=== PATIENT | female | born 1970 | race Caucasian/White ===

== ENCOUNTER 2016-03-25 06:21 | Inpatient (IN) | payer OTHER ==
[2016-03-23 14:59] VITALS: BMI 42.0
[~2016-03-25] VITALS: Ht 162.6 cm; Wt 112.2 kg
[2016-03-25] VITALS (8 sets, daily range): BP systolic 91–119; BP diastolic 58–73; PULSE 71–102; TEMP 36.6–37.1; O2SAT 95–100; Ht 162.6 cm; Wt 112.2 kg
[~2016-03-25 06:21] MED LIST: CEFAZOLIN 2000 MG/60 ML D5W IV SCH; CeleBREX 200 MG CAP PO SCH; DULO60CA44 PO; LACTATED RINGER'S 1000ML 1,000 ML IV SCH; LEVO50TA6 PO; NAPR-1169 PO; PREGABALIN 75 MG CAP PO SCH; PROP80TA2 PO
[2016-03-25] MEDS ORDERED: MIDAZOLAM HCL 1 MG/ML 2ML VIAL ONE (07:39)
[2016-03-25] MEDS ORDERED: FENTANYL CITRATE INJ 50 MCG/1 ML 2 ML VIAL ONE ×3 (07:39→08:51)
[2016-03-25] MEDS ORDERED: SCOPOLAMINE 1.5 MG TDSY TD ONE (07:57)
[2016-03-25] MEDS ORDERED: OXYC-57 PO (08:13)
--- NOTE | 2016-03-25 08:15 | Discharge Instructions ---
Discharge Instructions Admission Reason for Admission: Spinal Stenosis Discharge Discharge Diagnosis / Problem: Lumbar Stenosis Discharge Goals Goal(s): Decrease discomfort, Improve function, Increase independence Activity Recommendations Activity Limitations: as noted below Lifting Limitations: no more than 5 pounds Exercise/Sports Limitations: until after follow-up appointment May Resume Sexual Activity: after follow-up appointment Shower/Bathe: may shower/bathe in 3 days . Instructions / Follow-Up Instructions / Follow-Up ACTIVITY RECOMMENDATIONS: SELF CARE INSTRUCTIONS AFTER THORACIC/LUMBAR FUSIONS 1. You may walk to your tolerance. It is good exercise for your legs and back. Expect some back and intermittent leg aches and pains. 2. You may perform "counter-top" level activities (make a sandwich, yaquelin with a project, etc.). 3. No bending or lifting of more than 10 pounds or back twisting of any nature (roll like a log when turning in bed). 4. You may ride in a car for 20-30 minutes at a time. No driving until after your first visit with your doctor. 5. Frequent changes of position and restricting sitting to 30 minutes at a time will help limit the amount of back spasms and stiffness you may experience. 6. You may discontinue the use of ambulatory aids (cane, crutches, etc.) once your strength and confidence allow. 7. You may maintenance foreman the shower and let water strike your incision when you arrive home at least once daily. Do not take a tub bath, sit in a hot tub or go into a swimming pool until after your first recheck in the office. SPECIAL CARE INSTRUCTIONS: VERY IMPORTANT TO READ AND REVIEW A. Your surgical incision has been closed with a cosmetic suture under the skin that will dissolve in about 6 weeks. In 14 days, you can use a pair of clean scissors and cut the suture that is left outside of the skin at the ends of your incision. 1. The small skin tapes can be removed 7 days after surgery if they have not fallen off by that point. 2. You may keep the wound open to air as much as possible to promote healing after post-op day number 5 unless told otherwise by your doctor. 3. If you think the wound looks like it is becoming infected (redness or worsening drainage) and/or you are experiencing fever, chill or worsening back pain and muscle spasms, contact the office so that we may evaluate you as soon as possible. B. Complications are uncommon, but please contact us if you have any signs or symptoms of: 1. wound infection (fever higher than 102.5 degrees F, redness, separation of wound, drainage, or increasing pain from the incision) 2. blood clots in legs (pain, swelling, redness and warmth in legs) 3. urinary tract infection (fever higher than 102.5 degrees F, burning upon urination or increased frequency of urination) 4. nerve problems (inability to walk on your toes or heels, numbness, loss of bowel or bladder control) 5. any other symptoms that concern you C. Please call the office at if you have any concerns or questions about your operation or recovery. D. No smoking! Smoking drastically decreases the chance of a solid fusion. E. Do not take any anti-inflammatory medications (Indocin, Advil, Motrin, Aspirin, Naprosyn, etc.) as these may inhibit the chance of a solid fusion. Tylenol is okay to take for pain. MANAGING PAIN AFTER SPINAL SURGERY 1. Narcotic medication is intended for short-term use and will be provided for surgical pain. Surgical pain usually lasts for a period of 4-6 weeks. Narcotic medication includes Percocet, Vicodin, Darvocet, Tylenol #3 or Lortab. 2. Longer-term pain is more appropriately treated with non-narcotic medication such as Tylenol ES. 3. Muscle spasm is not appropriately treated with narcotics. Muscle relaxers such as Soma, Flexeril or Skelaxin can be used along with Tylenol ES. 4. Remember that we all live with some "aches and pains". This is not unusual or uncommon after an injury or as we get older. a. Back pain is expected and may include muscle spasms for 4 to 6 weeks after surgery. The pain should gradually improve. If the pain worsens for no apparent reason, please contact the office. b. Intermittent leg pain may also be experienced and should not be concerned about unless it worsens for no apparent reason. If so, please contact the office. 5. We will provide appropriate medication within the normal guidelines of their prescribed use. We will also be very cautious and aware of potential abuse and extended duration of patients' medication needs. a. Pain medications are for your comfort and to assist with sleep and rest so that the tissue can heal. They are not provided in order to return to normal activity and should not be used through the day. To do so or worsening pain at night can result from ongoing tissue damage and development of tolerance to the prescribed medicine. 6. Please allow 2-3 days to process refills. Prescriptions will not be mailed but must be picked up at the office. FOLLOW UP VISIT: Keep your scheduled follow-up appointment. Any questions, please call the office at . Current Hospital Diet Patient's current hospital diet: Discharge Diet Recommended Diet: Regular Diet Pending Studies Studies pending at discharge: no Medical Emergencies . Who to Call and When: Medical Emergencies: If at any time you feel your situation is an emergency, please call 911 immediately. . Non-Emergent Contact Non-Emergency issues call your: Surgeon Call Non-Emergent contact if: temperature is above 101, your pain is not controlled, your pain is worsening, your pain is unusual for you, your pain is concerning you, wound has increased drainage, wound has increased redness, wound has increased pain, you have any medication questions . "Provider Documentation" section prepared by Toño Young. VTE Core Measure Inpt VTE Proph given/why not?: Cailtyn Hassan
--- NOTE | 2016-03-25 08:18 | History and Physical ---
History & Physical Date Mar 25, 2016. Chief Complaint LBP and bilateral leg pain History of Present Illness The patient is a 45 year old female with complaints of above who failed years of non op management. Left greater than right pain in L5 distribution. MRI shows L5-S1 DDD/foraminal stenosis. no numbness or weakness. Past Medical/Surgical History Medical Problems: (1) DDD (degenerative disc disease) migraines hypothryoid depression asthma prior cervical fusion florin Additional History Hepatic Disease: No Endocrine Disorder: No Kidney Disease: No Hypertension: No Heart Disease: No Bleeding Tendencies: No Infectious Diseases: No Allergies Coded Allergies: Brompheniramine (Verified Allergy, Unknown, HIVES, 03/25/16) Phenylpropanolamine (Verified Allergy, Unknown, HIVES, 03/25/16) Home Medications Scheduled Duloxetine Hcl (Cymbalta), 60 MG PO QAM Levothyroxine Sodium (Levothyroxine Sodium), 1 TAB PO QAM Naproxen (Naprosyn), 500 MG PO HOLD 03/13 Propranolol (Inderal), 80 MG PO QAM Scheduled PRN Oxycodone/Acetaminophen 5MG/325MG (Percocet 5MG/325MG), 1-2 TABLETS PO Q4H PRN for Pain Physical Examination Skin: warm/dry Eyes: normal inspection ENT: normal ENT inspection Head: normocephalic, atraumatic Neck: supple, trachea midline Respiratory/Chest: lungs clear, normal breath sounds, no respiratory distress Cardiovascular: regular rate, rhythm Back: normal inspection Extremities: normal inspection, normal range of motion Neurologic/Psych: no motor/sensory deficits, alert, normal reflexes, oriented x 3 Diagnosis L5-S1 DDD/stenosis Plan of Treatment L5-S1 TLIF
[2016-03-25] MEDS ORDERED: HYDROmorphone INJ 2 MG/ML SYR/VIAL ONE ×2 (08:43→09:56)
[2016-03-25] MEDS ORDERED: FLOSEAL HEMOSTATIC MATRIX 10ML TOP ONE (09:37)
[2016-03-25] MEDS ORDERED: THROMBIN FOR SOLN 20000 UNIT KIT TOP ONE (09:37)
[2016-03-25] MEDS ORDERED: THROMBIN 5000 UNITS KIT TOP ONE (09:37)
[2016-03-25] MEDS ORDERED: BUPIVACAINE/EPINEPHRINE 0.5% MPF 1:200,000 30 ML VIAL INJ ONE (09:37)
[2016-03-25] MEDS ORDERED: BACITRACIN 50000 UNIT VIAL IR ONE (09:37)
[2016-03-25] MEDS ORDERED: DURASEAL DURAL SEALANT 5ML TOP ONE ×2 (09:37→09:46)
[2016-03-25] MEDS ORDERED: EpHEDrine SULFATE INJ 50 MG/ML AMP IV PRN (09:45)
[2016-03-25] MEDS ORDERED: ATROPINE SULFATE 0.1 MG/ML 5ML SYR IV PRN (09:45)
[2016-03-25] MEDS ORDERED: ONDANSETRON INJ 2 MG/ML 2 ML VIAL IV PRN ×2 (09:45→10:00)
[2016-03-25] MEDS ORDERED: DEXAMETHASONE SOD INJ 4 MG/ML VIAL ONE (09:50)
[2016-03-25] MEDS ORDERED: ROCURONIUM BROMIDE 10 MG/ML 5 ML VIAL ONE (09:50)
[2016-03-25] MEDS ORDERED: LIDOCAINE HCL 2% 2 ML VIAL (20MG/ML) ONE (09:50)
[2016-03-25] MEDS ORDERED: EpHEDrine SULFATE 50MG/5ML SYR ONE (09:50)
[2016-03-25] MEDS ORDERED: PROPOFOL IV EMULSION 10 MG/ML 20 ML VIAL IV ONE (09:50)
--- NOTE | 2016-03-25 09:51 | [facility] Post Operative Brief Note ---
Immediate Operative Summary Operative Date Mar 25, 2016. Pre-Operative Diagnosis L5-S1 Degenerative Disc Disease/stenosis Post-Operative Diagnosis same as preop Procedure(s) Performed L5-S1 Decompression and Transforaminal Lumbar Interbody Fusion; Bone Marrow Aspirate; Allograft, Use of Arteriocyte, Repair of dural tear Surgeon Dr. Oliveira Propeller Engineer Surgeon(s) EASTON Olmos Estimated Blood Loss 100ML Findings dict Specimens none per surgeon
[2016-03-25] MEDS ORDERED: SODIUM CHLORIDE 0.9% 1000ML 1,000 ML IV SCH (09:53)
[2016-03-25] MEDS ORDERED: NEOSTIGMINE METHYLSULFATE 1 MG/ML 10ML VIAL ONE (10:00)
[2016-03-25] MEDS ORDERED: FAMOTIDINE 20 MG TAB PO PRN (10:00)
[2016-03-25] MEDS ORDERED: LORAZEPAM INJ 0.5 MG in SYRINGE 0 ML IV PRN (10:00)
[2016-03-25] MEDS ORDERED: PROMETHAZINE HCL INJ 12.5 MG in SODIUM CHLORIDE 0.9% 50ML 50 ML IV PRN (10:00)
[2016-03-25] MEDS ORDERED: RANITIDINE HCL 25 MG/ML INJ ONE (10:00)
[2016-03-25] MEDS ORDERED: MAGNESIUM HYDROXIDE SUSP 30 ML UDC PO PRN (10:00)
[2016-03-25] MEDS ORDERED: ONDANSETRON INJ 2 MG/ML 2 ML VIAL ONE (10:00)
[2016-03-25] MEDS ORDERED: ALUMINUM/MAGNESIUM SUSP 30 ML UDC PO PRN (10:00)
[2016-03-25] MEDS ORDERED: MoRPHine SULFATE 1 MG/ML 50 ML PCA CASS IV PRN (10:00)
[2016-03-25] MEDS ORDERED: KETOROLAC TROMETHAMINE 30 MG/ML VIAL ONE (10:00)
[2016-03-25] MEDS ORDERED: METOCLOPRAMIDE HCL INJ 5 MG/ML 2 ML VIAL ONE (10:00)
[2016-03-25] MEDS ORDERED: DC PCA PRN (10:00)
[2016-03-25] MEDS ORDERED: BISACODYL 10 MG SUPP PR PRN (10:00)
[2016-03-25] MEDS ORDERED: SOD PHOSPHATE/SOD BIPHOSPHATE ENEMA 132 ML BTL PR PRN (10:00)
[2016-03-25] MEDS ORDERED: hydrOXYzine HCL 25 MG TAB PO PRN (10:00)
[2016-03-25] MEDS ORDERED: GLYCOPYRROLATE INJ 0.2 MG/ML VIAL ONE (10:00)
[2016-03-25] MEDS ORDERED: ACETAMINOPHEN 500 MG TAB PO PRN (10:00)
[2016-03-25] MEDS ORDERED: METOCLOPRAMIDE HCL INJ 5 MG/ML 2 ML VIAL IV PRN (10:00)
[2016-03-25] MEDS ORDERED: LORAZEPAM 0.5 MG TAB PO PRN (10:00)
[2016-03-25] MEDS ORDERED: NALOXONE HCL 0.4 MG/1 ML VIAL/CARP IV PRN ×2 (10:00)
--- NOTE | 2016-03-25 10:16 | DIAGNOSTIC IMAGING REPORT ---
Lumbar spine LUMBAR SPINE 2 OR 3 VIEW CLINICAL HISTORY: L5-S1 DECOMPRESSION/FUSION/INTERBODY laminectomy TECHNIQUE: Image intensifier COMPARISON STUDY: None FINDINGS: Findings consistent with L5-S1 laminectomy and fusion. This patient is present. Fusion hardware is intact. IMPRESSION: L5-S1 laminectomy and fusion Electronically signed by: Dimitrios Antonio M.D. 03/25/2016 10:14 AM
[2016-03-25] MEDS: FENTANYL CITRATE INJ 50 MCG/1 ML 2 ML VIAL IV PRN ×4 (10:17→10:40)
[2016-03-25] MEDS ORDERED: MoRPHine SULFATE 1 MG/ML 50 ML PCA CASS ONE (10:21)
--- NOTE | 2016-03-25 10:44 | Anesthesiology Progress Note ---
Anesthesia Post Op Note Date & Time Mar 25, 2016 at 10:43 Vital Signs Pain Intensity: 8 Vital Signs Past 12 Hours Date Time Temp Pulse Resp B/P Pulse Ox O2 Delivery O2 Flow Rate FiO2 03/25/16 10:30 77 16 127/46 100 Mask 10 03/25/16 10:20 69 16 131/69 98 Mask 10 03/25/16 10:11 36.4 88 12 133/60 96 Mask 10 03/25/16 06:56 37.1 78 20 118/73 95 Room Air Notes Mental Status: alert / awake / arousable, participated in evaluation Pt Amnestic to Procedure: Yes Nausea / Vomiting: adequately controlled Pain: adequately controlled Airway Patency, RR, SpO2: stable & adequate BP & HR: stable & adequate Hydration State: stable & adequate Anesthetic Complications: no major complications apparent
[2016-03-25] MEDS: LACTATED RINGER'S 1000ML 1,000 ML IV SCH ×2 (13:16→23:41)
[2016-03-25] MEDS: CEFAZOLIN IV 2,000 MG in DEXTROSE 5% 50ML 50 ML IV SCH ×2 (15:52→23:40)
[2016-03-25] MEDS: DEXAMETHASONE INJ 6 MG in SYRINGE 0 ML IV SCH (17:26)
[2016-03-25] MEDS: DOCUSATE SODIUM/SENNA 50/8.6MG TAB PO SCH (21:01)
[2016-03-26] MEDS: DEXAMETHASONE INJ 6 MG in SYRINGE 0 ML IV SCH ×2 (01:42→09:03)
[2016-03-26 03:36] VITALS: BP 122/67; PULSE 83; TEMP 36.9; O2SAT 94
[2016-03-26] MEDS: LEVOTHYROXINE 50 MCG TAB PO SCH (05:51)
[2016-03-26] MEDS ORDERED: NURSING DECISION MEDICATION ORDER SCH (06:00)
[2016-03-26] MEDS ORDERED: HYDROmorphone INJ 1 MG/ML SYR IV PRN (06:01)
[2016-03-26 07:02] VITALS: BP 130/74; PULSE 98; TEMP 37; O2SAT 94
[2016-03-26 07:04] LABS: COMPLETE YES; HEMATOCRIT 35.6 % (37-47); IG% 0.2 %; LYMPH % 5.9 %; LYMPH ABS # 0.66 K/uL (1.2-3.4); MEAN CELL VOLUME 86.2 fL (80-100); MEAN CORPUSCULAR HEMOGLOBIN 29.5 pg (25-34); MEAN CORPUSCULAR HGB CONC 34.3 g/dl (32-36); MEAN PLATELET VOLUME 9.8 fL (7.4-10.4); MONO % 1.3 %; NEUT % 92.6 %; PLATELET COUNT 272 K/uL (130-400); RED BLOOD COUNT 4.13 M/uL (4.2-5.4)
[2016-03-26] MEDS: OXYCODONE HCL IR 5 MG TAB (IMMEDIATE RELEASE) PO PRN ×4 (07:21→19:55)
--- NOTE | 2016-03-26 08:37 | Anesthesiology Progress Note ---
Anesthesia Post Op Note Date & Time Mar 26, 2016 at 08:36 Vital Signs Pain Intensity: 6.0 Vital Signs Past 12 Hours Date Time Temp Pulse Resp B/P Pulse Ox O2 Delivery O2 Flow Rate FiO2 03/26/16 07:10 Room Air 03/26/16 07:02 37.0 98 17 130/74 94 Room Air 03/26/16 03:36 36.9 83 18 122/67 94 Room Air 03/25/16 22:43 37.0 102 16 119/70 96 Nasal Cannula 2.0 Notes Mental Status: alert / awake / arousable, participated in evaluation Pt Amnestic to Procedure: Yes Nausea / Vomiting: adequately controlled Pain: adequately controlled Airway Patency, RR, SpO2: stable & adequate BP & HR: stable & adequate Hydration State: stable & adequate Anesthetic Complications: no major complications apparent
[2016-03-26] MEDS: DULOXETINE HCL 60 MG CAP PO SCH (09:02)
[2016-03-26] MEDS: PROPRANOLOL HCL 80 MG TAB PO SCH (09:02)
[2016-03-26 10:48] LABS: BUN/CREATININE RATIO 12.4 (10-20); CALCIUM 8.9 mg/dl (8.5-10.1); CREATININE 0.98 mg/dl (0.60-1.20); POTASSIUM 3.9 mmol/L (3.5-5.1)
--- NOTE | 2016-03-26 11:08 | Orthopedic Progress Note ---
Orthopedic Progress Note Date of Service Mar 26, 2016. Subjective Post OP Day: 1 Reports: feeling well, pain controlled w PO medications, Denies: SOB, calf pain , chest pain, complaints, light headedness, nausea / vomiting, using CAB DRIVER Objective calves soft nontender, N/V intact, dressing C/D/I, A&O x3, hemovac drainage Date Time Temp Pulse Resp B/P Pulse Ox O2 Delivery O2 Flow Rate FiO2 03/26/16 07:10 Room Air 03/26/16 07:02 37.0 98 17 130/74 94 Room Air 03/26/16 03:36 36.9 83 18 122/67 94 Room Air 03/25/16 22:43 37.0 102 16 119/70 96 Nasal Cannula 2.0 03/25/16 19:25 37.0 95 18 106/63 95 Room Air 03/25/16 19:15 Room Air 03/25/16 16:03 Nasal Cannula 3.0 03/25/16 14:54 37.0 93 16 106/62 97 Nasal Cannula 4.0 03/25/16 14:27 36.7 79 16 91/58 97 Nasal Cannula 4.0 03/25/16 13:25 36.6 79 16 102/61 97 Nasal Cannula 4.0 03/25/16 12:25 87 16 106/69 98 03/25/16 11:25 37.0 71 16 98/62 100 Nasal Cannula 4.0 03/25/16 11:25 100 Nasal Cannula 4.0 03/25/16 11:25 100 Nasal Cannula 4.0 03/25/16 11:25 37.0 71 16 98/62 100 Nasal Cannula 4.0 03/25/16 11:10 36.5 68 16 106/59 100 Nasal Cannula 4 Laboratory Results 24 Hours: Test 03/26/16 06:35 White Blood Count 11.10 K/uL Red Blood Count 4.13 M/uL Hemoglobin 12.2 g/dL Hematocrit 35.6 % Mean Corpuscular Volume 86.2 fL Mean Corpuscular Hemoglobin 29.5 pg Mean Corpuscular Hemoglobin Concent 34.3 g/dl Platelet Count 272 K/uL Mean Platelet Volume 9.8 fL Neutrophils (%) (Auto) 92.6 % Lymphocytes (%) (Auto) 5.9 % Monocytes (%) (Auto) 1.3 % Eosinophils (%) (Auto) 0.0 % Basophils (%) (Auto) 0.0 % Neutrophils # (Auto) 10.28 K/uL Lymphocytes # (Auto) 0.66 K/uL Monocytes # (Auto) 0.14 K/uL Eosinophils # (Auto) 0.00 K/uL Basophils # (Auto) 0.00 K/uL Assessment & Plan Assessment: doing great Plan: PT, drain, scds, d/c sat am Discharge Planning Discharge Planning: home Pain Management: Oxy IR DVT Prophylaxis: TEDs, SCDs
[2016-03-26 11:30] VITALS: BP 119/70; PULSE 88; TEMP 37.3; O2SAT 95
[2016-03-26 15:00] VITALS: BP 141/68; PULSE 83; TEMP 37.1; O2SAT 94
[2016-03-26] MEDS: DOCUSATE SODIUM/SENNA 50/8.6MG TAB PO SCH (20:39)
[2016-03-26 22:45] VITALS: BP 105/64; PULSE 73; TEMP 37.1; O2SAT 94
[2016-03-27] VITALS: O2SAT 94
[2016-03-27] MEDS: OXYCODONE HCL IR 5 MG TAB (IMMEDIATE RELEASE) PO PRN ×3 (01:46→10:34)
[2016-03-27] MEDS: LEVOTHYROXINE 50 MCG TAB PO SCH (05:42)
[2016-03-27] MEDS: POLYETHYLENE (MIRALAX) 17 GM PACK PO SCH ×2 (05:42→11:36)
[2016-03-27 06:55] VITALS: BP 110/71; PULSE 69; TEMP 37.1; O2SAT 99
[2016-03-27 08:00] VITALS: O2SAT 99
[2016-03-27] MEDS: PROPRANOLOL HCL 80 MG TAB PO SCH (09:11)
[2016-03-27] MEDS: DULOXETINE HCL 60 MG CAP PO SCH (09:12)
[2016-03-27 09:51] VITALS: BP 110/71; PULSE 69; TEMP 37.1; O2SAT 99
--- NOTE | 2016-03-30 15:41 | OPERATIVE REPORT ---
DATE OF OPERATION: 03/25/2016 PREOPERATIVE DIAGNOSES: 1. L5-S1 disc degeneration and foraminal stenosis. 2. L5-S1 facet arthrosis. POSTOPERATIVE DIAGNOSES: Same. PROCEDURES: 1. L5 laminectomy with left L5-S1 medial facetectomy. 2. Nonsegmental pedicle screw instrumentation -- bilateral L5 and S1 with K2M [place] pedicle screws. 3. Posterolateral fusion, L5-S1 -- bilateral with Infuse BMP on a collagen sponge, tricalcium phosphate, local bone and bone putty. 4. Left L5-S1 transforaminal lumbar interbody fusion with K2M titanium mesh interbody spacer, local bone and Infuse BMP on a collagen sponge. 5. Right iliac crest bone marrow aspiration stem cell concentration with Arteriocyte and application of bone graft. SURGEON: Dr. Oliveira. COMMERCIAL PEST CONTROL REPRESENTATIVE: Toño Young PA-C. Please note he participated in all portions of the procedure and was critical for performance of the procedure, participated with positioning, prepping, draping, retraction, wound closure. ANESTHESIA: General endotracheal anesthesia. COMPLICATIONS: None. Please note that the nurse placed repair of dural tear in the procedure list on the operative note, which I did not notice when I signed it, this is incorrect. There was no dural tear, and there was no repair of dural tear. This was a mis-documentation by the RN in the room. ESTIMATED BLOOD LOSS: 100 mL. IV FLUIDS: Per anesthesia record. DESCRIPTION OF PROCEDURE: After identification of patient and operative level, she was brought to the OR where she underwent induction of general anesthesia. She was then positioned prone on Tristen OR table with all bony prominences well padded. Care was taken to avoid pressure on the periorbital area. Lumbosacral area was sterilely prepped and draped in usual fashion. Antibiotics were administered. Time-out was performed. Level was confirmed and skin incision was made from spinous process of L4 to the sacrum. Posterior exposure was accomplished. Gelpi retractors were placed. Level was confirmed with fluoroscopy and midline decompression was accomplished, removal of the inferior portion of the L5 lamina predominantly on the left side and takedown ligamentum flavum. I removed the medial facets at L5-S1 and accomplished indirect decompression in the foramen on the left. I then placed pedicle screws bilaterally at L5 and S1 with K2M [place] pedicle screws. I checked screw position with fluoroscopy and then proceeded to do a complete discectomy from the left L5-S1 with gee and curettes. After preparation of the disk space, I filled the cage with local bone, bone putty, bone marrow aspirate and a small strip with Infuse BMP on a Collagen sponge. I tamped this cage into position and then applied DuraSeal over the annulotomy. There were no dural tear. The DuraSeal was simply applied to fill the annulotomy defect. I then lowered the David frame to restore lordosis, applied rods and end caps for final tightening. I irrigated with bacitracin solution. I then took bone marrow aspirate from the right iliac crest and concentrated with Arteriocyte system applied it to the bone graft hvac maintenance technician and prepared the lateral gutters for bone grafting. I decorticated the transverse process, sacral ala of L5 and S1 with a high speed bur bilaterally as well as facets, then packed the lateral gutters with bone graft mixture as above. I then closed in layered fashion over JORDIN drain. All sponge and needle counts were correct at the end of the case. I attest to the content of the Intraoperative Record and any orders documented therein. Any exceptio ns are noted below.
--- NOTE | 2016-04-05 01:40 | DISCHARGE SUMMARY ---
PRINCIPAL DIAGNOSES: L5-S1 degenerative joint disease and foraminal stenosis and facet arthrosis. POSTOPERATIVE [id number]: Same. PROCEDURE: L5-S1 decompression and fusion procedure. SURGEON: Dr. Ayan Oliveira. ENGRAVING PLATE MAKER: Alberto Gomez PA-C HISTORY OF PRESENT ILLNESS: Please refer to EMR. HOSPITAL COURSE: On 03/25/2016, Ms. Hendrickson was admitted to [facility] with the above diagnosis. She was taken to preoperative holding where she was identified, evaluated and cleared for surgical procedure. She was transported to the operating room, introduced with general endotracheal anesthesia. Sterile conditions were set and she successfully underwent the above procedure without complication or issue. She was then awakened in stable and satisfactory condition and transported to postoperative recovery. Here her vital signs and pain were monitored and managed. She remained medically stable within the orthopedic floor. Throughout her stay, her vital signs, labs and pain were monitored and managed through physician direction. She participated in physical therapy with good noted progress. DVT and GI prophylactic measures were taken. On the date of 03/27/2016 after provider evaluation, she was indicated to return home. On this date, she was discharged from [facility]. DISPOSITION: Home. DISPOSITION CONDITION: Stable. NOTED COMPLICATIONS OR ISSUES: Zero. DISCHARGE INSTRUCTIONS: Please refer to EMR.
== END 2016-03-27 13:33 | disposition home or self-care (01) | DRG 460 ==
LOC: ENRESERVDT → ENRESERVTM → C.ACU 06:21 → C.MSW 08:00
PROVIDERS: ADMIT Orthopaedic Surgery Orthopaedic Surgery of the Spine; ATTEND Orthopaedic Surgery Orthopaedic Surgery of the Spine
PROC: 0ST40ZZ Resection of Lumbosacral Disc, Open Approach (ICD-10-PCS; principal; 2016-03-25 08:15)
PROC: 3E0U0GB Introduction of Recombinant Bone Morphogenetic Protein into Joints, Open Approach (ICD-10-PCS; principal; 2016-03-25 08:15)
PROC: 0SG3071 Fusion of Lumbosacral Joint with Autologous Tissue Substitute, Posterior Approach, Posterior Column, Open Approach (ICD-10-PCS; principal; 2016-03-25 08:15)
PROC: 07DR3ZZ Extraction of Iliac Bone Marrow, Percutaneous Approach (ICD-10-PCS; principal; 2016-03-25 08:15)
PROC: 0SG30AJ Fusion of Lumbosacral Joint with Interbody Fusion Device, Posterior Approach, Anterior Column, Open Approach (ICD-10-PCS; principal; 2016-03-25 08:15)
DX: M51.37 Other intervertebral disc degeneration, lumbosacral region (principal); M48.07 Spinal stenosis, lumbosacral region; E03.9 Hypothyroidism, unspecified; F32.9 Major depressive disorder, single episode, unspecified; Z98.1 Arthrodesis status; Z79.1 Long term (current) use of non-steroidal anti-inflammatories (NSAID); Z79.899 Other long term (current) drug therapy